=== PATIENT | female | born 1950 ===

== ENCOUNTER 2017-09-17 09:07 | Emergency (ER) | payer MEDICARE ==
--- NOTE | 2017-09-17 10:33 | UC ---
Throat Pain/Nasal Campos HPI - HPI Summary HPI Summary: 67 y/o female presents to the urgent care c/o sore throat, hoarseness since last 09/13/2017. Pt also states mild productive cough since yesterday. Pt has HX of seasonal allergies. Pt has taken Ibuprofen PO to alleviate symptoms. Pain w/ swallowing is 4/10. Pt denies fever, SOB, chest pain, abdominal pain, N/V/D - History of Current Complaint Chief Complaint: UCGeneralIllness Stated Complaint: THROAT PAIN Time Seen by Provider: 09/17/17 10:01 Hx Obtained From: Patient ?: No - Menopausal Onset/Duration: Gradual Onset, Lasting Days - 4 days, Still Present, Worse Since - yesterday Pain Intensity: 4 Pain Scale Used: 0-10 Numeric Cough: Sputum Appears - clear Associated Signs & Symptoms: Positive: Dysphagia Related History: Seasonal Allergies - Epiglottits Risk Factors Epiglottis Risk Factors: Negative - Allergies/Home Medications Allergies/Adverse Reactions: Allergies Allergy/AdvReac Type Severity Reaction Status Date / Time No Known Allergies Allergy Verified 09/17/17 09:26 Home Medications: Home Medications Cyclosporine 0.05% OPHTH (NF) [Restasis 0.05% OPHTH] 1 drop BOTH EYES BID [History Confirmed 09/17/17] Lisinopril [Lisinopril 2.5 MG-] 10 mg PO DAILY 09/17/17 [History Confirmed 09/17] PMH/Surg Hx/FS Hx/Imm Hx Previously Healthy: Yes Cardiovascular History: Hypertension - Surgical History Surgical History: Yes Surgery Procedure, Year, and Place: hysterectomy 1990s. R hip replacement. hernia repair. tonsillectomy - Family History Known Family History: Positive: Cardiac Disease, Hypertension, Diabetes - Social History Occupation: Retired Lives: With Family Alcohol Use: Occasionally Substance Use Type: None Smoking Status (MU): Never Smoked Tobacco Review of Systems Constitutional: Negative Skin: Negative Eyes: Negative ENT: Sore Throat, Nasal Discharge - clear w/ +PND, Other - hoarseness Respiratory: Cough - productive w/ clear phlegm Cardiovascular: Negative Gastrointestinal: Negative Genitourinary: Negative Motor: Negative Neurovascular: Negative Musculoskeletal: Negative Neurological: Negative Psychological: Negative Is Patient Immunocompromised?: No All Other Systems Reviewed And Are Negative: Yes Physical Exam - Summary Physical Exam Summary: VITAL SIGNS: Reviewed. GENERAL: Patient is a well developed and nourished female who is sitting comfortable in the examining table. Patient is not in any acute respiratory distress. HEAD AND FACE: No signs of trauma. No ecchymosis, hematomas or skull depressions. No sinus tenderness. EYES: PERRLA, EOMI x 2, No injected conjunctiva, no nystagmus. No photophobia. EARS: Hearing grossly intact. Ear canals and tympanic membranes are within normal limits. MOUTH: Positive pharynx with erythema,no exudates, no palatal petechiae. NO B/ L tonsillar enlargement with exudate. Uvula in midline. clear +PND NECK: Supple, trachea is midline, Positive anterior cervical lymphadenopathy, no JVD, no carotid bruit, no c-spine tenderness, neck with full ROM. No meningeal signs, no Kernig's or brudzinskis signs. CHEST: Symmetric, no tenderness at palpation LUNGS: Clear to auscultation bilaterally. No wheezing or crackles. CVS: Regular rate and rhythm, S1 and S2 present, no murmurs or gallops appreciated. ABDOMEN: Soft, non-tender. No signs of distention. No rebound no guarding, and no masses palpated. Bowel sounds are normal. EXTREMITIES: FROM in all major joints, no edema, no cyanosis or clubbing. NEURO: Alert and oriented x 3. No acute neurological deficits. Speech is normal and follows commands. SKIN: Dry and warm Triage Information Reviewed: Yes Vital Signs: Initial Vital Signs Temp 98.4 F 09/17/17 09:28 Pulse 91 09/17/17 09:28 Resp 18 09/17/17 09:28 BP 168/88 09/17/17 09:28 Pulse Ox 99 09/17/17 09:28 Throat Pain/Nasal Course/Dx - Course Course Of Treatment: 67 y/o female presents to the urgent care c/o sore throat, hoarseness since last 09/13/2017. Pt also states mild productive cough since yesterday. Pt has HX of seasonal allergies. Pt has taken Ibuprofen PO to alleviate symptoms. Pain w/ swallowing is 4/10. Pt denies fever, SOB, chest pain , abdominal pain, N/V/D. Hx obtained. Pt w/ Laryngitis on examination. Rapid strep ordered, result: negative. Pt Rx ibuprofen PO and Tessalon tabs PO to alleviates symptoms of pain, cough and swelling. Advised to rest her voidce and on hand washing to avoid spreading. Pt advised to rest, eat well and avoid strenuous exercise. If symptoms do not improve or worsen advised to return to the urgent care or f/u with her PCP for further evaluation and treatment. Pt's BP is elevated today advised to decrease salt in diet, monitor BP and f/u with PCP for further management. Pt understood and agreed w/ paln of care. - Differential Dx/Diagnosis Differential Diagnosis/HQI/PQRI: Influenza, Laryngitis, Pharyngitis, Tonsillitis Provider Diagnoses: 1- Laryngitis. 2- Cough. 3- Uncontrolled HTN Discharge - Sign-Out/Discharge Documenting (check all that apply): Patient Departure - D/C home - Discharge Plan Condition: Stable Disposition: HOME Prescriptions: Benzonatate CAP* [Tessalon 100 MG CAP*] 100 mg PO TID #21 cap Ibuprofen TAB* [Motrin TAB* 600 MG] 600 mg PO Q6H PRN #30 tab PRN Reason: Pain Patient Education Materials: Laryngitis (ED), Low-Sodium Diet (ED) Referrals: [facility] [Outside] - 3 Days Additional Instructions: 1-Please take ibuprofen PO q6-8hrs prn as instructed after meals to alleviate pain and swelling. Increase fluid intake, eat well, rest and avoid strenuous exercise 2- Take Tessalon tabs PO as directed to alleviate cough 3-Your BP is elevated today. please decrease salt in your diet, monitor BP and if it continues to be elevated please f/u with your PCP for further management 4-If symptoms do not improve or worsen please return to the urgent care or f/u with your PCP in 3 days for further evaluation and treatment. - Billing Disposition and Condition Condition: STABLE Disposition: Home
== END 2017-09-17 10:50 | disposition home or self-care (01) ==
LOC: UCEAST 09:07
DX: J04.0 Acute laryngitis (principal); R05 Cough; I10 Essential (primary) hypertension; Z96.641 Presence of right artificial hip joint
CPT/HCPCS: 87651; 99202; G0463